=== PATIENT | male | born 1970 | race Caucasian/White ===

== ENCOUNTER 2019-12-17 20:47 | Emergency (ER) | payer BC ==
[2019-12-17] MEDS ORDERED: Ondansetron ODT 4 mg TAB 4 MG TAB PO ONE (21:10)
[2019-12-17] MEDS ORDERED: Tetan/Diph/Pertus SYR(Tdap)* 0.5 ML SYR(BOOSTRIX) use SYR contains LATEX IM ONE (22:17)
[2019-12-17 22:36] VITALS: BP 121/63
== END 2019-12-17 22:23 | disposition home or self-care (01) ==
LOC: ED 20:47